=== PATIENT | female | born 1990 | race Caucasian/White ===

== ENCOUNTER 2018-05-18 12:16 | Inpatient (IN) | payer BC ==
[2018-05-18] MEDS ORDERED: CEFTRIAXONE 1 GM/D5W RTU 1 GM/50 ML RTUPB IV ONE (12:31)
--- NOTE | 2018-05-18 12:32 | ER Document Report ---
ED Medical Screen (RME) - General Chief Complaint: Diarrhea Stated Complaint: FEVER/DIARRHEA Time Seen by Provider: 05/18/18 12:31 Mode of Arrival: Ambulatory Information source: Patient Notes: 28 yr old female hx of non hodgkins lymphoma who srercieved chemo for 5 days straight, then had Neulasta 48 hours after presents with fever and diarrhea. pt ntoes the chemo was about 2 weeks ago. pt is from [place]. Pt has been neutropenic in the past admits to uri symptoms and productive cough I have greeted and performed a rapid initial assessment of this patient. A comprehensive ED assessment and evaluation of the patient, analysis of test results and completion of the medical decision making process will be conducted by additional ED providers. PHYSICAL EXAMINATION: GENERAL: Well-appearing, well-nourished and in no acute distress. HEAD: Atraumatic, normocephalic. EYES: Pupils equal round extraocular movements intact, conjunctiva are normal. ENT: Nares patent NECK: Normal range of motion LUNGS: No respiratory distress, port left chest Musculoskeletal: Normal range of motion NEUROLOGICAL: Normal speech, normal gait. PSYCH: Normal mood, normal affect. SKIN: Warm, Dry, normal turgor, no rashes or lesions noted. - Related Data Allergies/Adverse Reactions: No Known Allergies Allergy (Unverified 05/18/18 12:21) Physical Exam - Vital signs Vitals: Temp Pulse BP Pulse Ox 99.1 F 129 H 113/69 97 05/18/18 12:21 05/18/18 12:21 05/18/18 12:21 05/18/18 12:21 Course - Vital Signs Vital signs: Temp Pulse Resp BP Pulse Ox 99.1 F 129 H 113/69 97 05/18/18 12:21 05/18/18 12:21 05/18/18 12:21 05/18/18 12:21
[2018-05-18] MEDS ORDERED: CEFEPIME 2 GM/D5W RTU 2 GM/50 ML RTUPB IV ONE (12:41)
--- NOTE | 2018-05-18 12:59 | ER Document Report ---
ED General - General Mode of Arrival: Ambulatory Information source: Patient <KRISTIE BUCKNER - Last Filed: 05/18/18 15:16> <KETAN OLGUIN - Last Filed: 05/19/18 15:22> - General Chief Complaint: Diarrhea Stated Complaint: FEVER/DIARRHEA Time Seen by Provider: 05/18/18 12:31 Notes: Patient is a 28-year-old female with non-Hodgkin's lymphoma diagnosed 2 months ago that presents to the emergency department today with complaints of fevers of 102.3 at home. Patient is from [place] and is here visiting, stating she has been at the beach all week. Patient denies any lesions, abrasions, lacerations or anything that she thinks could have possibly gotten infected. Patient has not eaten any raw seafood. Patient did take Tylenol prior to arrival. Patient states she has had diarrhea with her fever but denies any chest pain, shortness of breath, or lesions. (KRISTIE BUCKNER) - Related Data Allergies/Adverse Reactions: No Known Allergies Allergy (Unverified 05/18/18 12:21) Past Medical History - General Information source: Patient - Social History Smoking Status: Never Smoker Cigarette use (# per day): No Chew tobacco use (# tins/day): No Frequency of alcohol use: Occasional Drug Abuse: None Lives with: Family Family History: Reviewed & Not Pertinent Patient has suicidal ideation: No Patient has homicidal ideation: No Renal/ Medical History: Denies: Hx Peritoneal Dialysis <DUDLEYKRISTIE - Last Filed: 05/18/18 15:16> Review of Systems - Review of Systems Constitutional: No symptoms reported EENT: No symptoms reported Cardiovascular: denies: Chest pain Respiratory: denies: Short of breath Gastrointestinal: See HPI, Abdominal pain, Diarrhea Genitourinary: No symptoms reported Female Genitourinary: No symptoms reported Musculoskeletal: No symptoms reported Skin: No symptoms reported Hematologic/Lymphatic: No symptoms reported Neurological/Psychological: No symptoms reported -: Yes All other systems reviewed and negative <KRISTIE BUCKNER - Last Filed: 05/18/18 15:16> Physical Exam <KRISTIE BUCKNER - Last Filed: 05/18/18 15:16> <KETAN OLGUIN - Last Filed: 05/19/18 15:22> - Vital signs Vitals: Temp Pulse BP Pulse Ox 99.1 F 129 H 113/69 97 05/18/18 12:21 05/18/18 12:21 05/18/18 12:21 05/18/18 12:21 - Notes Notes: Physical Exam: General: Alert and pleasant. HEENT: Normocephalic. Atraumatic. PERRL. Extraocular movements intact. Oropharynx clear. Alopecia consistent with chemotherapy. Neck: Supple. Non-tender. Respiratory: No respiratory distress. Clear and equal breath sounds bilaterally. Cardiovascular: Tachycardic, regular rhythm. Abdominal: Normal Inspection. Non-tender. No distension. Normal Bowel Sounds. Back: Non-tender. No deformity or step off. Extremities: Moves all four extremities. Upper extremities: Normal inspection. Normal ROM. Lower extremities: Normal inspection. No edema. Normal ROM. Neurological: Normal cognition. AAOx4. Normal speech. Psychological: Normal affect. Normal Mood. Skin: Warm. Dry. Normal color. (KRISTIE BUCKNER) Course - Laboratory Result Diagrams: 05/18/18 14:09 05/18/18 14:09 <KRISTIE BUCKNER - Last Filed: 05/18/18 15:16> - Laboratory Result Diagrams: 05/19/18 05:38 05/19/18 05:38 - Diagnostic Test Radiology reviewed: Image reviewed - NAD - EKG Interpretation by Ok EKG shows normal: Sinus rhythm Rate: Tachycardia Rhythm: NSR - Normal vitals, normal intervals <LONG,KETAN H - Last Filed: 05/19/18 15:22> - Re-evaluation Re-evalutation: 05/18/18 15:08 Discussed case with nurse practitioner for ROGELIO Jain. Pending WBC at this time patient is well-appearing does not have any abdominal pain at this time. She has been at the beach on vacation but denies any cuts on her body and she has not been next opposed to any consumption of raw seafoods. Pending CBC and call from Dr. Arango. 05/18/18 15:[address] Arango. Discussed white cell count and waiting for ANC at this time. He stated if patient is not neutropenic she can be discharged. Discussed with patient strict return precautions if symptoms were to become worse or for any other concerns to seek medical care. No black or red stool, no abd pain at time of d/c. She is to follow-up with Dr. Arango early next week. He advised putting her on 5 days of Levaquin. 05/18/18 15:53 05/18/18 16:08 ANC 15.2, d/c as discussed. (KETAN OLGUIN) - Vital Signs Vital signs: Temp Pulse Resp BP Pulse Ox 98.8 F 97 12 116/67 100 05/19/18 13:06 05/19/18 13:06 05/19/18 13:06 05/19/18 13:06 05/19/18 13:06 - Laboratory Laboratory results interpreted by me: 05/18/18 05/18/18 05/18/18 12:24 14:09 15:00 WBC 15.5 H Hgb 11.8 L Hct 35.6 L MCH 26.3 L RDW 23.2 H Seg Neuts % (Manual) 95 H Lymphocytes % (Manual) 0 L Monocytes % (Manual) 1 L Abs Neuts (Manual) 15.2 H Abs Lymphs (Manual) 0.2 L Sodium 134.7 L Urine Blood SMALL H Discharge <KRISTIE BUCKNER - Last Filed: 05/18/18 15:16> <KETAN OLGUIN - Last Filed: 05/19/18 15:22> - Discharge Clinical Impression: Fever Qualifiers: Fever type: drug-induced Qualified Code(s): R50.2 - Drug induced fever Diarrhea Qualifiers: Diarrhea type: due to malabsorption Qualified Code(s): K90.9 - Intestinal malabsorption, unspecified Disposition: ADMITTED INPATIENT Scribe Attestation: 05/19/18 15:22 I personally performed the services described documentation, reviewed and edited the documentation which was dictated to describe my presence, and it accurately records my words and actions. (KETAN OLGUIN) Scribe Documentation - Scribe Written by Allison:: Allison Nevarez, 05/18/2018 1521 acting as scribe for :: Cornelius <KRISTIE BUCKNER - Last Filed: 05/18/18 15:16>
--- NOTE | 2018-05-18 13:08 | RADIOLOGY REPORT (SQ) ---
EXAM DESCRIPTION: CHEST 2 VIEWS COMPLETED DATE/TIME: 05/18/2018 12:59 pm REASON FOR STUDY: non Hodgkins mass, productive cough fever COMPARISON: None. EXAM PARAMETERS: NUMBER OF VIEWS: two views TECHNIQUE: Digital Frontal and Lateral radiographic views of the chest acquired. RADIATION DOSE: NA LIMITATIONS: none FINDINGS: LUNGS AND PLEURA: No opacities, masses or pneumothorax. No pleural effusion. MEDIASTINUM AND HILAR STRUCTURES: No masses or contour abnormalities. HEART AND VASCULAR STRUCTURES: Heart normal size. No evidence for failure. BONES: No acute findings. HARDWARE: An injection port is present on the left. OTHER: No other significant finding. IMPRESSION: NO ACUTE RADIOGRAPHIC FINDING IN THE CHEST. TECHNICAL DOCUMENTATION: JOB ID: [id number] [employer]- All Rights Reserved Reading location - IP/workstation name: [email or web address]
[2018-05-18] MEDS: NORMAL SALINE 1000 ML 1,000 ML IV PRN ×2 (14:10→16:07)
[2018-05-18 14:30] LABS: VENOUS BLOOD BASE EXCESS -3.1 mmol/L; VENOUS BLOOD HCO3 21.2 mmol/L (20-32); VENOUS BLOOD PCO2 35.6 mmHg (35-63); VENOUS BLOOD PH 7.39 (7.30-7.42)
[2018-05-18 14:40] LABS: INTERNATIONAL RATION (INR) 0.91; PROTHROMBIN TIME 12.7 SEC (11.4-15.4)
[2018-05-18 14:44] LABS: ALANINE AMINOTRANSFERASE 33 U/L (9-52); ALBUMIN 3.8 g/dL (3.5-5.0); ALKALINE PHOSPHATASE 74 U/L (38-126); ANION GAP 10 (5-19); ASPARTATE AMINO TRANSFERASE 21 U/L (14-36); BILIRUBIN,DIRECT 0.3 mg/dL (0.0-0.4); BILIRUBIN,TOTAL 0.5 mg/dL (0.2-1.3); BLOOD UREA NITROGEN 8 mg/dL (7-20); CARBON DIOXIDE 22 mmol/L (22-30); CHLORIDE 103 mmol/L (98-107); GLUCOSE 109 mg/dL (75-110); POTASSIUM 4.4 mmol/L (3.6-5.0); SODIUM 134.7 mmol/L (137-145); TOTAL PROTEIN 6.4 g/dL (6.3-8.2)
[2018-05-18 15:00] LABS: APPEARANCE,URINE CLEAR; BILIRUBIN,URINE NEGATIVE (NEGATIVE); COLOR,URINE YELLOW; GLUCOSE, URINE NEGATIVE (NEGATIVE); KETONES,URINE NEGATIVE (NEGATIVE); LEUKOCYTE ESTERASE,URINE NEGATIVE (NEGATIVE); NITRITE,URINE NEGATIVE (NEGATIVE); PROTEIN,URINE NEGATIVE (NEGATIVE); URINE SPECIFIC GRAVITY 1.017; UROBILINOGEN,URINE NEGATIVE mg/dL (<2.0)
[2018-05-18 15:23] LABS: HEMATOCRIT 35.6 % (36.0-47.0); HEMOGLOBIN 11.8 g/dL (12.0-15.5); MEAN CORPUSCULAR HEMOGLOBIN 26.3 pg (27.0-33.4); MEAN CORPUSCULAR HGB CONC 33.1 g/dL (32.0-36.0); MEAN CORPUSCULAR VOLUME 80 fl (80-97); PLATELET COUNT 217 10^3/uL (150-450); RED BLOOD COUNT 4.48 10^6/uL (3.72-5.28); RED CELL DISTRIBUTION WIDTH 23.2 % (11.5-14.0); WHITE BLOOD COUNT 15.5 10^3/uL (4.0-10.5)
[2018-05-18 15:51] LABS: ABSOLUTE LYMPHOCYTES# (MANUAL) 0.2 10^3/uL (0.5-4.7); ABSOLUTE MONOCYTES # (MANUAL) 0.2 10^3/uL (0.1-1.4); ABSOLUTE NEUTROPHILS# (MANUAL) 15.2 10^3/uL (1.7-8.2); BAND NEUTROPHILS % (MANUAL) 3 % (3-5); BASOPHILS % (MANUAL) 0 % (0-2); EOSINOPHILS % (MANUAL) 0 % (0-6); LYMPHOCYTES % (MANUAL) 0 % (13-45); MONOCYTES % (MANUAL) 1 % (3-13); SEGMENTED NEUTROPHILS % (MAN) 95 % (42-78); TOTAL CELLS COUNTED 100
--- NOTE | 2018-05-18 15:52 | EKG REPORT ---
SEVERITY:- BORDERLINE ECG - SINUS TACHYCARDIA PROBABLE LEFT ATRIAL ABNORMALITY BORDERLINE T ABNORMALITIES, ANTERIOR LEADS : Confirmed by: Maritza Kidd 18-May-2018 15:51:00
[2018-05-18 15:54] LABS: POIKILOCYTOSIS SLIGHT; TOXIC GRANULATION 1+
[2018-05-18 15:55] LABS: ANISOCYTOSIS 3+; OVALOCYTES SLIGHT; PLATELET COMMENT ADEQUATE; TEAR DROP CELLS SLIGHT
--- NOTE | 2018-05-18 18:29 | ER Document Report ---
ED General - General Chief Complaint: Diarrhea Stated Complaint: FEVER/DIARRHEA Time Seen by Provider: 05/18/18 12:31 Mode of Arrival: Ambulatory Notes: This is a 28-year-old female with non-Hodgkin's lymphoma seen initially by triage doctor followed by Dr. rosales. Was set up for discharge when discharge vital signs revealed patient is persistently tachycardic with heart rates in the 120s-130s. Blood pressure stable at 118/60. Patient now febrile again a temperature of 102. Patient is on chemotherapy with 3 rounds. Uncomfortable at this time discharging with vital signs like that so attempted to contact patient's oncologist. Patient denies any major symptoms at this time other than some chills. - Related Data Allergies/Adverse Reactions: No Known Allergies Allergy (Unverified 05/18/18 12:21) Past Medical History - General Information source: Patient - Social History Smoking Status: Never Smoker Cigarette use (# per day): No Chew tobacco use (# tins/day): No Frequency of alcohol use: Occasional Drug Abuse: None Lives with: Family Family History: Reviewed & Not Pertinent Patient has suicidal ideation: No Patient has homicidal ideation: No Renal/ Medical History: Denies: Hx Peritoneal Dialysis Review of Systems - Review of Systems Constitutional: Fever. denies: Malaise, Weakness EENT: denies: Blurred vision, Nose congestion, Mouth swelling Cardiovascular: Heart racing. denies: Chest pain, Palpitations Respiratory: denies: Cough, Hurts to breathe, Short of breath, Wheezing Gastrointestinal: Diarrhea. denies: Abdominal pain, Nausea, Vomiting Genitourinary: denies: Burning, Dysuria, Flank pain Musculoskeletal: denies: Back pain, Gout, Joint pain Skin: denies: Dryness, Lesions, Lumps, Rash Hematologic/Lymphatic: See HPI Neurological/Psychological: denies: Confusion, Weakness, Numbness Physical Exam - Vital signs Vitals: Temp Pulse BP Pulse Ox 99.1 F 129 H 113/69 97 05/18/18 12:21 05/18/18 12:21 05/18/18 12:21 05/18/18 12:21 Interpretation: Tachycardic - Notes Notes: No acute distress - Cardiovascular Rhythm: Tachycardia Heart sounds: Normal auscultation Murmur: No - Extremities General upper extremity: Normal inspection, Nontender, Normal color, Normal ROM , Normal temperature General lower extremity: Normal inspection, Nontender, Normal color, Normal ROM , Normal temperature, Normal weight bearing. No: Galen's sign - Neurological Neuro grossly intact: Yes Cognition: Normal Orientation: AAOx4 Jamar Coma Scale Eye Opening: Spontaneous Jamar Coma Scale Verbal: Oriented [place] Coma Scale Motor: Obeys Commands Jamar Coma Scale Total: 15 Speech: Normal Motor strength normal: LUE, RUE, LLE, RLE Sensory: Normal - Skin Skin Temperature: Warm Skin Moisture: Dry Skin Color: Normal Course - Re-evaluation Re-evalutation: 05/18/18 18:38 Kasai ptosis on chemotherapy with a fever of 102 and tachycardic. Uncomfortable discharge at this time. Maxipime has been given. 2 L of fluid given. Repeat lactic acid ordered. Please see previous physician's notes for further detail. Will attempt to contact hospitalist for admission. Still trying to get in contact with patient's oncologist at this time. - Vital Signs Vital signs: Temp Pulse Resp BP Pulse Ox 102.8 F H 129 H 25 H 108/58 L 98 05/18/18 18:30 05/18/18 12:22 05/18/18 19:07 05/18/18 19:07 05/18/18 19:07 - Laboratory Result Diagrams: 05/18/18 15:00 05/18/18 14:09 Laboratory results interpreted by me: 05/18/18 05/18/18 05/18/18 12:24 14:09 15:00 WBC 15.5 H Hgb 11.8 L Hct 35.6 L MCH 26.3 L RDW 23.2 H Seg Neuts % (Manual) 95 H Lymphocytes % (Manual) 0 L Monocytes % (Manual) 1 L Abs Neuts (Manual) 15.2 H Abs Lymphs (Manual) 0.2 L Sodium 134.7 L Urine Blood SMALL H Critical Care Note - Critical Care Note Total time excluding time spent on procedures (mins): 35 Comments: Tachycardia, oncology patient with fever, consultation with specialists Discharge - Discharge Clinical Impression: Fever Qualifiers: Fever type: unspecified Qualified Code(s): R50.9 - Fever, unspecified Diarrhea Qualifiers: Diarrhea type: unspecified type Qualified Code(s): R19.7 - Diarrhea, unspecified Disposition: ADMITTED INPATIENT Admitting Provider: [facility] Unit Admitted: Telemetry Instructions: Diarrhea, Nonspecific ([facility]), Fever ([facility]) Additional Instructions: Please follow-up with your oncologist early next week as discussed. Please seek medical attention if you feel your symptoms are worsening or for any other concerns. Prescriptions: Levofloxacin [Levaquin 750 mg Tablet] 750 mg PO DAILY #5 tablet Ondansetron [Zofran Odt 4 mg Tablet] 1 tab PO ASDIR PRN #15 tab.rapdis PRN Reason: For Nausea/Vomiting
[2018-05-18] MEDS ORDERED: ACETAMINOPHEN 325 MG TABLET PO ONE (18:30)
[2018-05-18] MEDS ORDERED: IPRATROPIUM/ALBUTEROL 0.5-2.5 MG/3 ML AMPUL NEB PRN (19:35)
[2018-05-18] MEDS ORDERED: KETOROLAC TROMETHAMINE INJ/PF 30 MG/1 ML SDV IV PRN (19:37)
[2018-05-18] MEDS: NORMAL SALINE 1000 ML 1,000 ML IV SCH (21:11)
[2018-05-18] MEDS: CEFEPIME 1 GM/D5W RTU 1 GM/50 ML RTUPB IV SCH (21:16)
[2018-05-19] MEDS: NORMAL SALINE 1000 ML 1,000 ML IV SCH (00:53)
[2018-05-19] MEDS: ACETAMINOPHEN 325 MG TABLET PO PRN ×2 (01:03→19:43)
[2018-05-19] MEDS: HEPARIN SOD (PORCINE) 5,000 UNIT/ML 1 ML SYRINGE SUBCUT SCH ×4 (01:14→19:46)
[2018-05-19] MEDS ORDERED: ONDANSETRON HCL INJ/PF 4 MG/2 ML SDV ONE (01:22)
[2018-05-19] MEDS: ONDANSETRON HCL INJ/PF 4 MG/2 ML SDV IV PRN ×2 (01:28→12:07)
[2018-05-19] MEDS ORDERED: NORMAL SALINE 1000 ML 1,000 ML IV PRN (03:07)
--- NOTE | 2018-05-19 05:46 | PDOC H&P ---
History of Present Illness Admission Date/PCP: 05/18/18 19:47 Patient complains of: Fever and diarrhea History of Present Illness: JEZ PHILIP is a 28 year old female with history of non-Hodgkin's lymphoma. Presents with fever of 102.6 and diarrhea. Oncologist requests cefepime and hospitalization. Patient denies focal complaint of diarrhea, admits previous episode following chemotherapy. Social History Information Source: Patient Lives with: Family Smoking Status: Never Smoker Frequency of Alcohol Use: None Hx Recreational Drug Use: No Drugs: None Hx Prescription Drug Abuse: No - Advance Directive Resuscitation Status: Full Code Family History Family History: CAD Parental Family History Reviewed: Yes Children Family History Reviewed: Yes Sibling(s) Family History Reviewed.: Yes Medication/Allergy Home Medications: No Home Medications 05/18/18 Allergies/Adverse Reactions: No Known Allergies Allergy (Unverified 05/18/18 12:21) Review of Systems Constitutional: ABSENT: chills, fever(s), headache(s), weight gain, weight loss Eyes: ABSENT: visual disturbances Ears: ABSENT: hearing changes Cardiovascular: ABSENT: chest pain, dyspnea on exertion, edema, orthropnea, palpitations Respiratory: ABSENT: cough, hemoptysis Gastrointestinal: ABSENT: abdominal pain, constipation, diarrhea, hematemesis, hematochezia, nausea, vomiting Genitourinary: ABSENT: dysuria, hematuria Musculoskeletal: ABSENT: joint swelling Integumentary: ABSENT: rash, wounds Neurological: ABSENT: abnormal gait, abnormal speech, confusion, dizziness, focal weakness, syncope Psychiatric: ABSENT: anxiety, depression, homidical ideation, suicidal ideation Endocrine: ABSENT: cold intolerance, heat intolerance, polydipsia, polyuria Hematologic/Lymphatic: ABSENT: easy bleeding, easy bruising Physical Exam Vital Signs: Temp Pulse Resp BP Pulse Ox 98.2 F 82 18 132/52 H 99 05/19/18 04:34 05/19/18 04:34 05/19/18 04:34 05/19/18 04:34 05/19/18 04:02 General appearance: PRESENT: mild distress, well-developed, well-nourished Head exam: PRESENT: atraumatic, normocephalic Eye exam: PRESENT: conjunctiva pink, EOMI, PERRLA. ABSENT: scleral icterus Ear exam: PRESENT: normal external ear exam Mouth exam: PRESENT: moist, tongue midline Neck exam: ABSENT: carotid bruit, JVD, lymphadenopathy, thyromegaly Respiratory exam: PRESENT: clear to auscultation jose j. ABSENT: rales, rhonchi, wheezes Cardiovascular exam: PRESENT: RRR. ABSENT: diastolic murmur, rubs, systolic murmur Pulses: PRESENT: normal dorsalis pedis pul Vascular exam: PRESENT: normal capillary refill GI/Abdominal exam: PRESENT: hyperactive bowel sounds, soft. ABSENT: distended, guarding, mass, organolmegaly, rebound, tenderness Rectal exam: PRESENT: deferred Extremities exam: PRESENT: full ROM. ABSENT: calf tenderness, clubbing, pedal edema Neurological exam: PRESENT: alert, awake, oriented to person, oriented to place , oriented to time, oriented to situation, CN II-XII grossly intact. ABSENT: motor sensory deficit Psychiatric exam: PRESENT: appropriate affect, normal mood. ABSENT: homicidal ideation, suicidal ideation Skin exam: PRESENT: dry, intact, warm. ABSENT: cyanosis, rash Results Impressions: Chest X-Ray 05/18/18 12:32 IMPRESSION: NO ACUTE RADIOGRAPHIC FINDING IN THE CHEST. Assessment & Plan - Diagnosis (1) Non Hodgkin's lymphoma Is this a current diagnosis for this admission?: Yes Plan: Defer to oncology (2) Fever Qualifiers: Fever type: unspecified Qualified Code(s): R50.9 - Fever, unspecified Is this a current diagnosis for this admission?: Yes Plan: Likely secondary to chemotherapy, supportive care, empiric antibiotic initiated follow-up CBC (3) Diarrhea Qualifiers: Diarrhea type: unspecified type Qualified Code(s): R19.7 - Diarrhea, unspecified Is this a current diagnosis for this admission?: Yes Plan: Fluid resuscitation, follow-up chemistry for electrolyte repletion as needed
[2018-05-19 06:43] LABS: ALANINE AMINOTRANSFERASE 26 U/L (9-52); ALBUMIN 2.8 g/dL (3.5-5.0); ALKALINE PHOSPHATASE 48 U/L (38-126); ANION GAP 8 (5-19); ASPARTATE AMINO TRANSFERASE 14 U/L (14-36); BILIRUBIN,DIRECT 0.3 mg/dL (0.0-0.4); BILIRUBIN,TOTAL 0.4 mg/dL (0.2-1.3); BLOOD UREA NITROGEN 5 mg/dL (7-20); CALCIUM 7.8 mg/dL (8.4-10.2); CARBON DIOXIDE 21 mmol/L (22-30); CHLORIDE 111 mmol/L (98-107); GLUCOSE 102 mg/dL (75-110); POTASSIUM 3.6 mmol/L (3.6-5.0); SODIUM 139.5 mmol/L (137-145); TOTAL PROTEIN 5.2 g/dL (6.3-8.2)
[2018-05-19 07:07] LABS: HEMATOCRIT 32.4 % (36.0-47.0); HEMOGLOBIN 10.9 g/dL (12.0-15.5); MEAN CORPUSCULAR HEMOGLOBIN 26.9 pg (27.0-33.4); MEAN CORPUSCULAR HGB CONC 33.8 g/dL (32.0-36.0); MEAN CORPUSCULAR VOLUME 80 fl (80-97); PLATELET COUNT 189 10^3/uL (150-450); RED BLOOD COUNT 4.07 10^6/uL (3.72-5.28); RED CELL DISTRIBUTION WIDTH 23.2 % (11.5-14.0); WHITE BLOOD COUNT 9.8 10^3/uL (4.0-10.5)
[2018-05-19 07:11] LABS: ABSOLUTE LYMPHOCYTES# (MANUAL) 0.2 10^3/uL (0.5-4.7); ABSOLUTE MONOCYTES # (MANUAL) 0.1 10^3/uL (0.1-1.4); ABSOLUTE NEUTROPHILS# (MANUAL) 9.4 10^3/uL (1.7-8.2); BAND NEUTROPHILS % (MANUAL) 4 % (3-5); BASOPHILS % (MANUAL) 0 % (0-2); EOSINOPHILS % (MANUAL) 1 % (0-6); LYMPHOCYTES % (MANUAL) 2 % (13-45); MONOCYTES % (MANUAL) 1 % (3-13); SEGMENTED NEUTROPHILS % (MAN) 92 % (42-78); TOTAL CELLS COUNTED 100
[2018-05-19 07:13] LABS: ANISOCYTOSIS 2+; OVALOCYTES 1+; PLATELET COMMENT ADEQUATE
[2018-05-19] MEDS: DOCUSATE SODIUM 100 MG CAPSULE PO SCH ×3 (08:59→19:46)
[2018-05-19] MEDS: CEFEPIME 1 GM/D5W RTU 1 GM/50 ML RTUPB IV SCH ×2 (09:56→19:46)
[2018-05-19] MEDS: LOPERAMIDE HCL 2 MG CAPSULE PO PRN ×2 (12:07→19:43)
--- NOTE | 2018-05-19 12:10 | PDOC CONSULTATION ---
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 The cycle was complicated by a higher fever at 102, increased nausea and weakness, and diarrhea. Ultimately she called her oncologist in [place] who recommended that she come to the ED, upon presentation she did have a fever as high as 102, was tachycardic and hypotensive, was definitely behind in hydration secondary to the nausea and poor p.o. intake. Over the last 12-18 hours since admission she has not had another fever spike over 99. However this morning she still felt nauseous and was not able to keep down any Gatorade. She is able to keep down some oral hydration. Her oncologist had recommended cefepime, and that has been given this morning. Upon discharge her oncologist has recommended Cipro. Past Medical History Malignancy Medical History: Reports: Lymphoma - As in HPI Past Surgical History Past Surgical History: Reports: Other - Biopsy mediastinum Social History Information Source: Patient Lives with: Family Smoking Status: Never Smoker Frequency of Alcohol Use: None Hx Recreational Drug Use: No Drugs: None Hx Prescription Drug Abuse: No - Advance Directive Resuscitation Status: Full Code Family History Family History: CAD Parental Family History Reviewed: Yes Children Family History Reviewed: Yes Sibling(s) Family History Reviewed.: Yes Medication/Allergy Home Medications: No Home Medications 05/18/18 Allergies/Adverse Reactions: No Known Allergies Allergy (Unverified 05/18/18 12:21) Review of Systems Constitutional: PRESENT: anorexia, fatigue, fever(s), weakness Cardiovascular: ABSENT: chest pain, dyspnea on exertion, edema, orthropnea, palpitations Gastrointestinal: PRESENT: nausea, vomiting Musculoskeletal: ABSENT: joint swelling Endocrine: PRESENT: cold intolerance Physical Exam Vital Signs: Temp Pulse Resp BP Pulse Ox 99.2 F 105 H 16 101/48 L 99 05/19/18 07:29 05/19/18 08:58 05/19/18 08:58 05/19/18 07:29 05/19/18 08:58 Intake & Output 05/18/18 05/19/18 05/20/18 06:59 06:59 06:59 Intake Total 0 Output Total 0 Balance 0 General appearance: PRESENT: no acute distress, well-developed, well-nourished Head exam: PRESENT: atraumatic, normocephalic Eye exam: PRESENT: conjunctiva pink, EOMI, PERRLA. ABSENT: scleral icterus Ear exam: PRESENT: normal external ear exam Mouth exam: PRESENT: moist, tongue midline Neck exam: ABSENT: carotid bruit, JVD, lymphadenopathy, thyromegaly Respiratory exam: PRESENT: clear to auscultation jose j. ABSENT: rales, rhonchi, wheezes Cardiovascular exam: PRESENT: RRR. ABSENT: diastolic murmur, rubs, systolic murmur Pulses: PRESENT: normal dorsalis pedis pul Vascular exam: PRESENT: normal capillary refill GI/Abdominal exam: PRESENT: normal bowel sounds, soft. ABSENT: distended, guarding, mass, organolmegaly, rebound, tenderness Rectal exam: PRESENT: deferred Extremities exam: PRESENT: full ROM. ABSENT: calf tenderness, clubbing, pedal edema Neurological exam: PRESENT: alert, awake, oriented to person, oriented to place , oriented to time, oriented to situation, CN II-XII grossly intact. ABSENT: motor sensory deficit Psychiatric exam: PRESENT: appropriate affect, normal mood. ABSENT: homicidal ideation, suicidal ideation Skin exam: PRESENT: dry, intact, warm. ABSENT: cyanosis, rash Results Laboratory Results: 05/19/18 05:38 05/19/18 05:38 05/19/18 05/19/18 05:38 05:38 WBC 9.8 RBC 4.07 Hgb 10.9 L Hct 32.4 L MCV 80 MCH 26.9 L MCHC 33.8 RDW 23.2 H Plt Count 189 Seg Neutrophils % Not Reportable Lymphocytes % Not Reportable Monocytes % Not Reportable Eosinophils % Not Reportable Basophils % Not Reportable Absolute Neutrophils Not Reportable Absolute Lymphocytes Not Reportable Absolute Monocytes Not Reportable Absolute Eosinophils Not Reportable Absolute Basophils Not Reportable Sodium 139.5 Potassium 3.6 Chloride 111 H Carbon Dioxide 21 L Anion Gap 8 BUN 5 L Creatinine 0.55 Est GFR ( Amer) > 60 Est GFR (Non-Af Amer) > 60 Glucose 102 Calcium 7.8 L Magnesium 1.6 Total Bilirubin 0.4 AST 14 ALT 26 Alkaline Phosphatase 48 Total Protein 5.2 L Albumin 2.8 L Impressions: Chest X-Ray 05/18/18 12:32 IMPRESSION: NO ACUTE RADIOGRAPHIC FINDING IN THE CHEST. Status: Image reviewed by me Assessment & Plan - Diagnosis (1) Fever Qualifiers: Fever type: drug-induced Qualified Code(s): R50.2 - Drug induced fever Is this a current diagnosis for this admission?: Yes Plan: Most likely the fever is drug-induced but agree with initial IV antibiotics and transition to oral antibiotics. The Neulasta can cause this as well as the chemotherapeutic as well. (2) Diarrhea Qualifiers: Diarrhea type: due to malabsorption Qualified Code(s): K90.9 - Intestinal malabsorption, unspecified; R19.7 - Diarrhea, unspecified; R19.7 - Diarrhea, unspecified Is this a current diagnosis for this admission?: Yes Plan: Probably secondary to chemotherapy, C. difficile negative, continue Imodium. This will happen each cycle most likely. 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 (4) Nausea & vomiting Qualifiers: Vomiting type: cyclical vomiting Vomiting Intractability: intractable Qualified Code(s): G43.A1 - Cyclical vomiting, intractable Is this a current diagnosis for this admission?: Yes Plan: Nausea and vomiting, secondary to chemotherapy, I discussed with hospitalist team to go ahead and allow her to eat today and continue to oral hydrate, she is able to keep things down and is stable for discharge she can go home today. Otherwise if she is still dehydrated in appearance as well as unable to keep food or water down, she will need to stay another 24 hours with IV hydration. Most likely she will be ready for discharge by tomorrow in that case. - Time Time Spent: Greater than 70 Minutes Within: within 24 hours - Inpatient Certification Based on my medical assessment, after consideration of the patient's comorbidities, presenting symptoms, or acuity I expect that the services needed warrant INPATIENT care.: Yes I certify that my determination is in accordance with my understanding of Medicare's requirements for reasonable and necessary INPATIENT services [42 CFR 412.3e].: Yes Medical Necessity: Need For IV Fluids, Need for IV Antibiotics
[2018-05-19] MEDS ORDERED: NORMAL SALINE 1000 ML 1,000 ML IV ONE (12:30)
--- NOTE | 2018-05-19 14:42 | PDOC PROGRESS REPORT ---
Subjective Progress Note for:: 05/19/18 - seen on round this morning Subjective:: states she's still a little nauseous and had thrown up a few more times since admission. Spoke with both the and the patient-tell me that she has had this type of symptoms in the past after chemotherapy. States that last time it was for 3-4 days that she was throwing up. They are planning on driving from here to [place] after discharge. I talked with him about the fact that it is a long drive and they would want to feel better before they get in the car. They understand that I advised that oncology will be seeing them today regarding their admission. Reason For Visit: NHL FEVER Physical Exam Vital Signs: Temp Pulse Resp BP Pulse Ox 98.8 F 97 12 116/67 100 05/19/18 13:06 05/19/18 13:06 05/19/18 13:06 05/19/18 13:06 05/19/18 13:06 Intake & Output 05/18/18 05/19/18 05/20/18 06:59 06:59 06:59 Intake Total 0 150 Output Total 0 1000 Balance 0 -850 General appearance: PRESENT: no acute distress Exam: She has no hair Head exam: PRESENT: atraumatic, normocephalic Eye exam: PRESENT: EOMI, other - Normal sclera Ear exam: PRESENT: normal external ear exam Mouth exam: PRESENT: moist Neck exam: PRESENT: other - No tracheal deviation Respiratory exam: PRESENT: clear to auscultation jose j, symmetrical Cardiovascular exam: PRESENT: RRR, +S1, +S2 Pulses: PRESENT: +2 pedal pulses bilateral GI/Abdominal exam: PRESENT: normal bowel sounds, soft, other - Nontender Extremities exam: PRESENT: full ROM. ABSENT: calf tenderness, clubbing, pedal edema Musculoskeletal exam: PRESENT: full ROM Neurological exam: PRESENT: alert, altered, awake, CN II-XII grossly intact Skin exam: PRESENT: dry, warm Results Laboratory Results: 05/19/18 05:38 05/19/18 05:38 05/19/18 05/19/18 05:38 05:38 WBC 9.8 RBC 4.07 Hgb 10.9 L Hct 32.4 L MCV 80 MCH 26.9 L MCHC 33.8 RDW 23.2 H Plt Count 189 Seg Neutrophils % Not Reportable Lymphocytes % Not Reportable Monocytes % Not Reportable Eosinophils % Not Reportable Basophils % Not Reportable Absolute Neutrophils Not Reportable Absolute Lymphocytes Not Reportable Absolute Monocytes Not Reportable Absolute Eosinophils Not Reportable Absolute Basophils Not Reportable Sodium 139.5 Potassium 3.6 Chloride 111 H Carbon Dioxide 21 L Anion Gap 8 BUN 5 L Creatinine 0.55 Est GFR ( Amer) > 60 Est GFR (Non-Af Amer) > 60 Glucose 102 Calcium 7.8 L Magnesium 1.6 Total Bilirubin 0.4 AST 14 ALT 26 Alkaline Phosphatase 48 Total Protein 5.2 L Albumin 2.8 L Impressions: Chest X-Ray 05/18/18 12:32 IMPRESSION: NO ACUTE RADIOGRAPHIC FINDING IN THE CHEST. Assessment & Plan - Diagnosis (1) Diarrhea Qualifiers: Diarrhea type: due to malabsorption Qualified Code(s): K90.9 - Intestinal malabsorption, unspecified; R19.7 - Diarrhea, unspecified; R19.7 - Diarrhea, unspecified Is this a current diagnosis for this admission?: Yes Plan: C. difficile was negative. We will start her on some Imodium. Most likely this is secondary to her chemo. She has had similar diarrhea after her chemo in the past. 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 (3) Fever Qualifiers: Fever type: drug-induced Qualified Code(s): R50.2 - Drug induced fever Is this a current diagnosis for this admission?: Yes Plan: Currently she is on cefepime and oncology had seen her this afternoon. At this time the plan is to discharge her when she is feeling better from her diarrhea and nausea/vomiting-on Cipro 500 mg twice daily. She will follow-up with her oncologist. (4) Nausea & vomiting Qualifiers: Vomiting type: cyclical vomiting Vomiting Intractability: intractable Qualified Code(s): G43.A1 - Cyclical vomiting, intractable Is this a current diagnosis for this admission?: Yes Plan: Continue Zofran as needed - Plan Summary Plan Summary: Likely discharge in 1-2 days when her symptoms resolve on Cipro 500 mg twice daily. She will follow-up with her oncologist in [place].
[2018-05-20 05:15] LABS: ABSOLUTE LYMPHOCYTES (AUTO) 0.7 10^3/uL (0.5-4.7); ABSOLUTE MONOCYTES (AUTO) 0.6 10^3/uL (0.1-1.4); ABSOLUTE NEUT (AUTO) 5.4 10^3/uL (1.7-8.2); BASOPHILS % (AUTO) 0.7 % (0-2); EOSINOPHILS % (AUTO) 0.1 % (0-6); HEMATOCRIT 30.4 % (36.0-47.0); HEMOGLOBIN 10.4 g/dL (12.0-15.5); LYMPHOCYTES % (AUTO) 10.5 % (13-45); MEAN CORPUSCULAR HEMOGLOBIN 26.8 pg (27.0-33.4); MEAN CORPUSCULAR HGB CONC 34.1 g/dL (32.0-36.0); MEAN CORPUSCULAR VOLUME 79 fl (80-97); MONOCYTES % (AUTO) 8.3 % (3-13); PLATELET COUNT 185 10^3/uL (150-450); RED BLOOD COUNT 3.87 10^6/uL (3.72-5.28); RED CELL DISTRIBUTION WIDTH 23.1 % (11.5-14.0); SEGMENTED NEUTROPHILS % (AUTO) 80.4 % (42-78); TOTAL CELLS COUNTED % (AUTO) 100 %; WHITE BLOOD COUNT 6.7 10^3/uL (4.0-10.5)
[2018-05-20 06:03] LABS: ANION GAP 6 (5-19); BLOOD UREA NITROGEN 3 mg/dL (7-20); CALCIUM 8.2 mg/dL (8.4-10.2); CARBON DIOXIDE 26 mmol/L (22-30); CHLORIDE 111 mmol/L (98-107); GLUCOSE 83 mg/dL (75-110); POTASSIUM 3.3 mmol/L (3.6-5.0)
[2018-05-20] MEDS: HEPARIN SOD (PORCINE) 5,000 UNIT/ML 1 ML SYRINGE SUBCUT SCH (07:18)
[2018-05-20] MEDS: LOPERAMIDE HCL 2 MG CAPSULE PO PRN (07:44)
[2018-05-20 08:38] VITALS: BP 113/67
[2018-05-20] MEDS ORDERED: POTASSIUM CHLORIDE 10 MEQ CAPSULE.ER PO ONE (08:45)
[2018-05-20] MEDS: CEFEPIME 1 GM/D5W RTU 1 GM/50 ML RTUPB IV SCH (09:16)
--- NOTE | 2018-05-20 10:19 | PDOC DISCHARGE SUMMARY ---
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 Is this a current diagnosis for this admission?: Yes (3) Fever Is this a current diagnosis for this admission?: Yes (4) Nausea & vomiting Is this a current diagnosis for this admission?: Yes - Additional Information Resuscitation Status: Full Code Discharge Diet: As Tolerated Discharge Activity: Activity As Tolerated Prescriptions: Ciprofloxacin HCl [Cipro 500 mg Tablet] 500 mg PO BID #20 tablet Home Medications: Ciprofloxacin HCl [Cipro 500 mg Tablet] 500 mg PO BID #20 tablet 05/20/18 Loperamide HCl [Imodium 2 mg Capsule] 2 mg PO Q6HP PRN capsule 05/20/18 History of Present Illness History of Present Illness: JEZ PHILIP is a 28 year old female Hospital Course Hospital Course: After admission she was started on IV cefepime as recommended by her Oncologist in [place], [place]. She was seen by our Oncologist yesterday and plan was to d/c her today on cipro for her diarrhea. Her cultures remained negative. She's feeling better this morning and her n/v is much improved. She's requesting discharge this afternoon so they can drive back to [place]. She knows that she needs to follow up with her Oncologist. states she will follow up with him when she gets back. She will take Imodium as needed for diarrhea. She will also take Cipro until she follows up with her PCP. She has been afebrile sin admission. Physical Exam Vital Signs: Temp Pulse Resp BP Pulse Ox 98.6 F 80 16 113/67 99 05/20/18 08:00 05/20/18 08:33 05/20/18 08:33 05/20/18 08:00 05/20/18 08:33 Intake & Output 05/19/18 05/20/18 05/21/18 06:59 06:59 06:59 Intake Total 0 1230 Output Total 0 4000 Balance 0 -2770 Weight 147 lb 0.773 oz General appearance: PRESENT: no acute distress Head exam: PRESENT: atraumatic, normocephalic, other - no hair Eye exam: PRESENT: EOMI. ABSENT: scleral icterus Mouth exam: PRESENT: moist Neck exam: ABSENT: tenderness, tracheal deviation Respiratory exam: PRESENT: clear to auscultation jose j, symmetrical Cardiovascular exam: PRESENT: RRR, +S1, +S2, other - chest wall port noted Pulses: PRESENT: +2 pedal pulses bilateral GI/Abdominal exam: PRESENT: normal bowel sounds, soft. ABSENT: tenderness Extremities exam: ABSENT: joint swelling, pedal edema Neurological exam: PRESENT: alert, awake, CN II-XII grossly intact Skin exam: PRESENT: dry, warm Results Laboratory Results: 05/20/18 04:55 05/20/18 04:55 05/20/18 05/20/18 04:55 04:55 WBC 6.7 RBC 3.87 Hgb 10.4 L Hct 30.4 L MCV 79 L MCH 26.8 L MCHC 34.1 RDW 23.1 H Plt Count 185 Seg Neutrophils % 80.4 H Lymphocytes % 10.5 L Monocytes % 8.3 Eosinophils % 0.1 Basophils % 0.7 Absolute Neutrophils 5.4 Absolute Lymphocytes 0.7 Absolute Monocytes 0.6 Absolute Eosinophils 0.0 Absolute Basophils 0.0 Sodium 143.0 Potassium 3.3 L Chloride 111 H Carbon Dioxide 26 Anion Gap 6 BUN 3 L Creatinine 0.62 Est GFR ( Amer) > 60 Est GFR (Non-Af Amer) > 60 Glucose 83 Calcium 8.2 L Impressions: Chest X-Ray 05/18/18 12:32 IMPRESSION: NO ACUTE RADIOGRAPHIC FINDING IN THE CHEST. Qualifiers - * PATIENT BEING DISCHARGED WITH ANY OF THE FOLLOWING DIAGNOSIS: No Plan Discharge Plan: driving back to [place] to the care of her Oncologist Time Spent: Less than 30 Minutes
--- NOTE | 2018-05-20 17:51 | Progress Note ---
Provider Note Provider Note: called by [facility] that patients stool has salmonella- called and spoke with patient- she's already on cipro 500mg BID- advised to continue and speak with her PCP about it. she acknowledged
== END 2018-05-20 12:00 | disposition home or self-care (01) | DRG 864 ==
LOC: ER 12:16 → EH 19:47 → 4N 05-19 00:50
PROVIDERS: ADMIT Internal Medicine; ATTEND Internal Medicine
DX: R50.2 Drug induced fever (principal); A02.9 Salmonella infection, unspecified; C83.32 Diffuse large B-cell lymphoma, intrathoracic lymph nodes; K90.9 Intestinal malabsorption, unspecified; T45.1X6A Underdosing of antineoplastic and immunosuppressive drugs, initial encounter; R19.7 Diarrhea, unspecified; G43.A1 Cyclical vomiting, in migraine, intractable; Z82.49 Family history of ischemic heart disease and other diseases of the circulatory system
CPT/HCPCS: 36415; 36591; 71046; 80048; 80053; 80076; 81001; 82803; 82962; 83605; 83735; 84703; 85025; 85610; 87040; 87045; 87077; 87086; 87186; 87205; 87493; 93005; 93010; 96361; 96365; 99291; J0692; J2405; J7030